=== PATIENT | female | born 1990 | race Caucasian/White ===

== ENCOUNTER 2017-06-10 00:51 | Inpatient (IN) | payer BC ==
[2017-06-10] MEDS ORDERED: Ampicillin 2 GM in Sodium Chloride 0.9% 100 ML IV ONE (02:49)
[2017-06-10] MEDS ORDERED: Water For Irrigation,Sterile 1,000 ML Container IRR PRN (02:49)
[2017-06-10] MEDS ORDERED: Butorphanol 1 MG/ML SDV IVPUSH PRN (02:49)
[2017-06-10] MEDS ORDERED: Lidocaine 1% 50 ML MDV INJECT PRN (02:49)
[2017-06-10] MEDS ORDERED: Sodium Chloride 0.9% 2.5 ML Syringe FLUSH PRN (02:49)
[2017-06-10] MEDS ORDERED: Misoprostol 200 MCG Tab PO PRN (02:49)
[2017-06-10] MEDS ORDERED: Tranexamic Acid 1,000 MG in Sodium Chloride 0.9% 100 ML IV PRN (02:49)
[2017-06-10] MEDS ORDERED: Carboprost Tromethamine 250 MCG/1 ML Amp IM PRN (02:49)
[2017-06-10] MEDS ORDERED: Methylergonovine 0.2 MG/1 ML Amp IM PRN (02:49)
[2017-06-10] MEDS ORDERED: Nalbuphine 10 MG/1 ML Vial IVPUSH PRN (02:49)
[2017-06-10] MEDS ORDERED: Sodium Chloride 0.9% 10 ML Syringe FLUSH PRN (02:49)
[2017-06-10] MEDS ORDERED: Oxytocin/0.9 % Sodium Chloride 30 UNIT/500 ML BAG IV SCH ×2 (03:00→19:30)
[2017-06-10] MEDS: Lactated Ringers 1,000 ML IV SCH ×2 (03:35→10:33)
[2017-06-10] MEDS: Ampicillin 1 GM in Sodium Chloride 0.9% 50 ML IV SCH ×5 (04:59→21:16)
[2017-06-10] MEDS ORDERED: Ropivacaine 0.2% 2 MG/ML 20 ML SDV ONE (11:11)
--- NOTE | 2017-06-10 11:13 | PCM.LDHP ---
L&D History of Present Illness - General Date of Service: 06/10/17 Admit Problem/Dx: Patient Status Order with Admit Dx/Problem 06/10/17 02:50 Patient Status [ADT] Routine Admission Diagnosis/Problem Admission Diagnosis/Problem Source of Information: Patient History Limitations: Reports: No Limitations - History of Present Illness Pain Score: 8 Improves with: Reports: None Worsens with: Reports: None Associated Symptoms: Reports: N - Related Data Allergies/Adverse Reactions: Allergies Allergy/AdvReac Type Severity Reaction Status Date / Time No Known Allergies Allergy Verified 06/10/17 02:49 Past Medical History - Past Surgical History Musculoskeletal Surgical History: Reports: Other (See Below) Other Musculoskeletal Surgeries/Procedures:: Arm reconstruction Social & Family History - Tobacco Use Smoking Status *Q: Never Smoker - Caffeine Use Caffeine Use: Reports: Coffee - Recreational Drug Use Recreational Drug Use: No H&P Review of Systems - Review of Systems: Review Of Systems: See Below General: Reports: No Symptoms HEENT: Reports: No Symptoms Pulmonary: Reports: No Symptoms Cardiovascular: Reports: No Symptoms Gastrointestinal: Reports: No Symptoms Genitourinary: Reports: No Symptoms Musculoskeletal: Reports: No Symptoms Skin: Reports: No Symptoms Psychiatric: Reports: No Symptoms Neurological: Reports: No Symptoms Hematologic/Lymphatic: Reports: No Symptoms Immunologic: Reports: No Symptoms L&D Exam - Exam Exam: See Below - Vital Signs Weight: 82.372 kg - OB Specific Fundal Height In cm: 36 Contraction Intensity: Moderate to Strong Movement: Active Heart Tones: Present Presentation: Vertex - Landeros Score Landeros Score Cervix Position: Anterior Landeros Score Consistency: Soft Landeros Score Effacement: >80% Landeros Score Dilation: > 5 cm Landeros Score 's Station: -2 Landeros Score Total: 11 - Exam General: Alert, Oriented HEENT: PERRLA, Conjunctiva Clear, EACs Clear, EOMI, Hearing Intact, Mucosa Moist & Agenda, Nares Patent, Normal Nasal Septum, Posterior Pharynx Clear, TMs Clear Neck: Supple, Trachea Midline Lungs: Clear to Auscultation, Normal Respiratory Effort Cardiovascular: Regular Rate, Regular Rhythm GI/Abdominal Exam: Normal Bowel Sounds, Soft, Non-Tender, No Organomegaly, No Distention, No Abnormal Bruit, No Mass, Pelvis Stable Rectal Exam: Normal Exam, Normal Rectal Tone Genitourinary: Normal external exam, Normal bimanual exam, Normal speculum exam Back Exam: Normal Inspection, Full Range of Motion Extremities: Normal Inspection, Normal Range of Motion, Non-Tender, No Pedal Edema, Normal Capillary Refill Skin: Warm, Dry, Intact Neurological: Cranial Nerves Intact, Reflexes Equal Bilateral Psychiatric: Alert, Normal Affect, Normal Mood - Patient Data Lab Results Last 24 hrs: Laboratory Results - last 24 hr 06/10/17 06/10/17 Range/Units 03:10 03:10 WBC 9.11 (4.0-11.0) K/uL RBC 4.40 (4.30-5.90) M/uL Hgb 12.6 (12.0-16.0) g/dL Hct 36.5 (36.0-46.0) % MCV 83.0 (80.0-98.0) fL MCH 28.6 (27.0-32.0) pg MCHC 34.5 (31.0-37.0) g/dL RDW Std Deviation 41.9 (28.0-62.0) fl RDW Coeff of Sonya 14 (11.0-15.0) % Plt Count 155 (150-400) K/uL MPV 10.70 (7.40-12.00) fL Nucleated RBC % 0.0 /100WBC Nucleated RBCs # 0 K/uL Blood Type A POSITIVE Antibody Screen NEGATIVE Result Diagrams: 06/10/17 03:10 Problem List Initiated/Reviewed/Updated: Yes Orders Last 24hrs: Active Orders 24 hr Category Date Time Status Patient Status [ADT] Routine ADT 06/10/17 02:50 Active Heart Tones [RC] CONTINUOUS Care 06/10/17 02:50 Active Non Stress Test [RC] PER UNIT ROUTINE Care 06/10/17 02:50 Active May Shower [RC] ASDIRECTED Care 06/10/17 02:50 Active Notify Provider [RC] PRN Care 06/10/17 02:50 Active Up ad Dena [RC] ASDIRECTED Care 06/10/17 02:50 Active Vaginal Exam [RC] PRN Care 06/10/17 02:50 Active Vital Signs [RC] PER UNIT ROUTINE Care 06/10/17 02:50 Active Ampicillin 1 gm Med 06/10/17 03:00 Active Sodium Chloride 0.9% [Normal Saline] 50 ml IV Q4H Butorphanol [Stadol] Med 06/10/17 02:49 Active 1 mg IVPUSH ASDIRECTED PRN Carboprost Tromethamine [Hemabate DS] Med 06/10/17 02:49 Active 250 mcg IM ASDIRECTED PRN Lactated Ringers [Ringers, Lactated] 1,000 ml Med 06/10/17 03:00 Active IV ASDIRECTED Lidocaine 1% [Xylocaine 1%] Med 06/10/17 02:49 Active 50 ml INJECT .ONCE PRN Methylergonovine [Methergine] Med 06/10/17 02:49 Active 0.2 mg IM ASDIRECTED PRN Misoprostol [Cytotec] Med 06/10/17 02:49 Active 200 mcg PO .ONCE PRN Nalbuphine [Nubain] Med 06/10/17 02:49 Active 10 mg IVPUSH ASDIRECTED PRN Oxytocin/0.9 % Sodium Chloride [Oxytocin 30 Unit/500 ML Med 06/10/17 03:00 Active -NS] 30 unit in 500 ml IV ASDIRECTED Sodium Chloride 0.9% [Saline Flush] Med 06/10/17 02:49 Active 10 ml FLUSH ASDIRECTED PRN Sodium Chloride 0.9% [Saline Flush] Med 06/10/17 02:49 Active 2.5 ml FLUSH ASDIRECTED PRN Tranexamic Acid [Cyklokapron] 1,000 mg Med 06/10/17 02:49 Active Sodium Chloride 0.9% [Normal Saline] 100 ml IV ONETIME Water For Irrigation,Sterile [Sterile Water for Med 06/10/17 02:49 Active Irrigation] 1,000 ml IRR ASDIRECTED PRN Scalp Electrode [WOMSER] Per Unit Routine Oth 06/10/17 02:50 Ordered Peripheral IV Insertion Adult [OM.PC] Routine Oth 06/10/17 02:50 Ordered Resuscitation Status Routine Resus Stat 06/10/17 02:49 Ordered Medication Orders Butorphanol Tartrate (Stadol) 1 mg IVPUSH ASDIRECTED PRN PRN Reason: Pain Carboprost Tromethamine (Hemabate Ds) 250 mcg IM ASDIRECTED PRN PRN Reason: Post Hemorrhage Ampicillin Sodium 1 gm/ Sodium (Chloride) 50 mls @ 100 mls/hr IV Q4H KATIE Last Admin: 06/10/17 08:44 Dose: 100 mls/hr Infusion: 06/10/17 05:29 Dose: 100 mls/hr Admin: 06/10/17 04:59 Dose: 100 mls/hr Lactated Ringer's (Ringers, Lactated) 1,000 mls @ 150 mls/hr IV ASDIRECTED [facility] Last Admin: 06/10/17 10:33 Dose: 150 mls/hr Infusion: 06/10/17 10:16 Dose: 150 mls/hr Admin: 06/10/17 03:35 Dose: 150 mls/hr Oxytocin/Sodium Chloride (Oxytocin 30 Unit/500 Ml-Ns) 30 unit in 500 mls @ 999 mls/hr IV ASDIRECTED [facility] Tranexamic Acid 1,000 mg/ (Sodium Chloride) 110 mls @ 600 mls/hr IV ONETIME PRN PRN Reason: Bleeding Lidocaine HCl (Xylocaine 1%) 50 ml INJECT .ONCE PRN PRN Reason: Laceration repair Methylergonovine Maleate (Methergine) 0.2 mg IM ASDIRECTED PRN PRN Reason: Post Hemorrhage Misoprostol (Cytotec) 200 mcg PO .ONCE PRN PRN Reason: Post Hemorrhage Nalbuphine HCl (Nubain) 10 mg IVPUSH ASDIRECTED PRN PRN Reason: Pain (severe 7-10) Last Admin: 06/10/17 04:59 Dose: 10 mg Sodium Chloride (Saline Flush) 10 ml FLUSH ASDIRECTED PRN PRN Reason: Keep Vein Open Sodium Chloride (Saline Flush) 2.5 ml FLUSH ASDIRECTED PRN PRN Reason: Keep Vein Open Sterile Water (Sterile Water For Irrigation) 1,000 ml IRR ASDIRECTED PRN PRN Reason: delivery Assessment/Plan Comment:: Pt in active labor P0000 term 39+. she can have Epidural if she want it.
--- NOTE | 2017-06-10 11:46 | PCM.PREANE ---
Preanesthetic Assessment - Procedure Proposed Procedure: labor epidural - Anesthesia/Transfusion/Family Hx Anesthesia History: Prior Anesthesia Without Reaction Family History of Anesthesia Reaction: No Transfusion History: No Prior Transfusion(s) - Review of Systems Other: Reports: None - Physical Assessment Height: 5 ft 9 in Weight: 82.372 kg ASA Class: 2 Mental Status: Alert & Oriented x3 Airway Class: Mallampati = 2 Dentition: Reports: Normal Dentition Thyro-Mental Finger Breadths: 3 Mouth Opening Finger Breadths: 3 ROM/Head Extension: Full - Lab Values: Laboratory Last Values WBC 9.11 K/uL (4.0-11.0) 06/10/17 03:10 RBC 4.40 M/uL (4.30-5.90) 06/10/17 03:10 Hgb 12.6 g/dL (12.0-16.0) 06/10/17 03:10 Hct 36.5 % (36.0-46.0) 06/10/17 03:10 MCV 83.0 fL (80.0-98.0) 06/10/17 03:10 MCH 28.6 pg (27.0-32.0) 06/10/17 03:10 MCHC 34.5 g/dL (31.0-37.0) 06/10/17 03:10 RDW Std Deviation 41.9 fl (28.0-62.0) 06/10/17 03:10 RDW Coeff of Sonya 14 % (11.0-15.0) 06/10/17 03:10 Plt Count 155 K/uL (150-400) 06/10/17 03:10 MPV 10.70 fL (7.40-12.00) 06/10/17 03:10 Nucleated RBC % 0.0 /100WBC 06/10/17 03:10 Nucleated RBCs # 0 K/uL 06/10/17 03:10 Blood Type A POSITIVE 06/10/17 03:10 Antibody Screen NEGATIVE 06/10/17 03:10 - Allergies Allergies/Adverse Reactions: Allergies Allergy/AdvReac Type Severity Reaction Status Date / Time No Known Allergies Allergy Verified 06/10/17 02:49 - Blood Blood Available: Yes Product(s) Available: PRBC - Acknowledgements Anesthesia Type Planned: Epidural Pt an Appropriate Candidate for the Planned Anesthesia: Yes Alternatives and Risks of Anesthesia Discussed w Pt/Guardian: Yes Pt/Guardian Understands and Agrees with Anesthesia Plan: Yes PreAnesthesia Questionnaire - Past Surgical History HEENT Surgical History: Reports: Oral Surgery Musculoskeletal Surgical History: Reports: Other (See Below) Other Musculoskeletal Surgeries/Procedures:: Arm reconstruction - SUBSTANCE USE Smoking Status *Q: Never Smoker Recreational Drug Use History: No - CURRENT (IN HOUSE) MEDS Current Meds: Current Medications Butorphanol Tartrate (Stadol) 1 mg IVPUSH ASDIRECTED PRN PRN Reason: Pain Carboprost Tromethamine (Hemabate Ds) 250 mcg IM ASDIRECTED PRN PRN Reason: Post Hemorrhage Ampicillin Sodium 1 gm/ Sodium (Chloride) 50 mls @ 100 mls/hr IV Q4H [facility] Last Admin: 06/10/17 08:44 Dose: 100 mls/hr Lactated Ringer's (Ringers, Lactated) 1,000 mls @ 150 mls/hr IV ASDIRECTED [facility] Last Admin: 06/10/17 10:33 Dose: 150 mls/hr Oxytocin/Sodium Chloride (Oxytocin 30 Unit/500 Ml-Ns) 30 unit in 500 mls @ 999 mls/hr IV ASDIRECTED [facility] Tranexamic Acid 1,000 mg/ (Sodium Chloride) 110 mls @ 600 mls/hr IV ONETIME PRN PRN Reason: Bleeding Lidocaine HCl (Xylocaine 1%) 50 ml INJECT .ONCE PRN PRN Reason: Laceration repair Methylergonovine Maleate (Methergine) 0.2 mg IM ASDIRECTED PRN PRN Reason: Post Hemorrhage Misoprostol (Cytotec) 200 mcg PO .ONCE PRN PRN Reason: Post Hemorrhage Nalbuphine HCl (Nubain) 10 mg IVPUSH ASDIRECTED PRN PRN Reason: Pain (severe 7-10) Last Admin: 06/10/17 04:59 Dose: 10 mg Sodium Chloride (Saline Flush) 10 ml FLUSH ASDIRECTED PRN PRN Reason: Keep Vein Open Sodium Chloride (Saline Flush) 2.5 ml FLUSH ASDIRECTED PRN PRN Reason: Keep Vein Open Sterile Water (Sterile Water For Irrigation) 1,000 ml IRR ASDIRECTED PRN PRN Reason: delivery Discontinued Medications Ampicillin Sodium 2 gm/ Sodium (Chloride) 100 mls @ 200 mls/hr IV ONETIME ONE Stop: 06/10/17 03:18 Last Admin: 06/10/17 03:35 Dose: 200 mls/hr Fentanyl/Bupivacaine HCl (Hiafubgx-Yazva-Uf 2 Mcg/Ml-0.125%) Confirm Administered Dose 100 mls @ as directed EP .STK-MED ONE Stop: 06/10/17 11:11 Ropivacaine (Naropin 0.2%) Confirm Administered Dose 20 ml .ROUTE .STK-MED ONE Stop: 06/10/17 11:12
[2017-06-10] MEDS ORDERED: Terbutaline 1 MG/ML SDV SUBCUT PRN (19:26)
[2017-06-11] MEDS ORDERED: Bisacodyl 10 MG Supp RECTAL PRN (05:23)
[2017-06-11] MEDS ORDERED: Acetaminophen 500 MG Tab PO PRN ×2 (05:23)
[2017-06-11] MEDS ORDERED: Benzocaine/Menthol 20%-0.5% Spray 78 GM Cannister TOP PRN (05:23)
[2017-06-11] MEDS ORDERED: Lanolin 100% Cream 7 GM Tube TOP PRN (05:23)
[2017-06-11] MEDS ORDERED: Witch Hazel Medicated Pads 40/Jar TOP PRN (05:23)
[2017-06-11] MEDS ORDERED: Ibuprofen 400 MG Tab PO PRN (05:23)
[2017-06-11] MEDS: Ibuprofen 800 MG Tab PO PRN ×3 (05:54→18:22)
[2017-06-11] MEDS: oxyCODONE 5 MG Tab PO PRN ×2 (05:55→08:55)
--- NOTE | 2017-06-11 05:56 | OR ---
SURGEON: Andrew Grey MD DATE OF PROCEDURE: 06/11/2017 Ms. Abraham is a 26-year-old patient. She is a primigravida. She is followed in our clinic primarily by the nurse glassblower. She had no problem prenatally. She had a positive GBS. The patient is admitted in active labor. She was about 4 cm at the time of admission with an intact membrane. The patient is started on antibiotic appropriately, and after 3 doses, the patient had an artificial rupture of the membrane at 8 cm. The patient initially did not want epidural. However, because of intense pain, she had epidural. At the time she had the epidural, she was 7 to 8 cm, complete, vertex, zero station. However, the unfortunate thing is that the patient did have a very dense epidural, and she required Pitocin augmentation, and she progressed slowly after that and she became complete-complete, and after that, she was able to push and she pushed for about 3-1/2 hours and then she was able to accomplish vaginal delivery of a male fetus. The episiotomy was required to do to prevent labial laceration and perineal laceration. At the time of the delivery, it was noticed that there was a thick meconium, so appropriate suctioning of the fetus is done, and the fetus was cried immediately. score reported to be 8 and 9. The weight is not available. The placenta delivered spontaneous, complete and intact, and the area of the episiotomy infiltrated with 1% Xylocaine and repaired with 3-0 Vicryl in layer. heart rate was category 1 through the entire process of labor, and there was no complication in the process of labor and delivery. The estimated blood loss was 250 to 300 mL. There was no complication. HEATHER / PITER /[id number]
[2017-06-11] MEDS: Docusate Sodium 100 MG Cap PO PRN ×2 (08:54→21:57)
--- NOTE | 2017-06-11 11:03 | PCM48HPAN ---
Post Anesthesia Note - EVALUATION WITHIN 48HRS OF ANESTHETIC Vital Signs in Normal Range: Yes Patient Participated in Evaluation: Yes Respiratory Function Stable: Yes Airway Patent: Yes Cardiovascular Function Stable: Yes Hydration Status Stable: Yes Pain Control Satisfactory: Yes Nausea and Vomiting Control Satisfactory: Yes Mental Status Recovered: Yes
[2017-06-12] MEDS: oxyCODONE 5 MG Tab PO PRN (06:36)
[2017-06-12] MEDS: Ibuprofen 800 MG Tab PO PRN ×2 (06:36→13:33)
[2017-06-12] MEDS ORDERED: ceFAZolin 1 GM Vial IM ONE (07:02)
[2017-06-12] MEDS ORDERED: ceFAZolin 1 GM in Premix Bag 1 BAG IV ONE (07:15)
[2017-06-12] MEDS: Docusate Sodium 100 MG Cap PO PRN (08:46)
--- NOTE | 2017-06-12 09:32 | PCM.DCSUM1 ---
Discharge Summary - Hospital Course Free Text/Narrative:: Discharge home with . Follow up in 6 weeks for post , comes sooner if needed. - Discharge Data Discharge Date: 06/12/17 Discharge Disposition: Home, Self-Care 01 Condition: Good - Patient Instructions Diet: Usual Diet as Tolerated Activity: As Tolerated, No Strenuous Activities, Rest and Relax Today Driving: May Drive Today Showering/Bathing: May Shower Wound/Incision Care: Keep Operative Site/Wound Site Clean and Dry Notify Provider of: Fever, Increased Pain, Swelling and Redness, Nausea and/or Vomiting Other/Special Instructions: Discharge home with . Follow up in 6 weeks for post , comes sooner if needed. - Discharge Plan - General Info Date of Service: 06/12/17 Admission Dx/Problem (Free Text: Patient Status Order with Admit Dx/Problem 06/10/17 02:50 Patient Status [ADT] Routine Admission Diagnosis/Problem Admission Diagnosis/Problem Functional Status: Reports: Pain Controlled, Tolerating Diet, Ambulating, Urinating - Review of Systems General: Reports: No Symptoms HEENT: Reports: No Symptoms Pulmonary: Reports: No Symptoms Cardiovascular: Reports: No Symptoms Gastrointestinal: Reports: No Symptoms Genitourinary: Reports: No Symptoms Musculoskeletal: Reports: No Symptoms Skin: Reports: No Symptoms Neurological: Reports: No Symptoms Psychiatric: Reports: No Symptoms - Patient Data Vitals - Most Recent: Last Vital Signs Temp 36.7 C 06/12/17 09:01 Pulse 72 06/12/17 09:01 Resp 18 06/12/17 09:01 BP 111/55 L 06/12/17 09:01 Pulse Ox 97 06/12/17 09:01 Weight - Most Recent: 82.372 kg Lab Results - Last 24 hrs: Laboratory Results - last 24 hr 06/12/17 Range/Units 05:15 Hgb 10.8 L (12.0-16.0) g/dL Hct 32.6 L (36.0-46.0) % Med Orders - Current: Current Medications Acetaminophen (Tylenol Extra Strength) 500 mg PO Q4H PRN PRN Reason: Pain Acetaminophen (Tylenol Extra Strength) 1,000 mg PO Q4H PRN PRN Reason: Pain Last Admin: 06/11/17 22:11 Dose: 1,000 mg Benzocaine/Menthol (Dermoplast Pain Relief 20%-0.5% [place]) 78 gm TOP ASDIRECTED PRN PRN Reason: Perineal Comfort Measure Last Admin: 06/11/17 05:53 Dose: 1 spray Bisacodyl (Dulcolax) 10 mg RECTAL .ONCE PRN PRN Reason: Constipation Butorphanol Tartrate (Stadol) 1 mg IVPUSH ASDIRECTED PRN PRN Reason: Pain Carboprost Tromethamine (Hemabate Ds) 250 mcg IM ASDIRECTED PRN PRN Reason: Post Hemorrhage Docusate Sodium (Colace) 100 mg PO BID PRN PRN Reason: Constipation Last Admin: 06/12/17 08:46 Dose: 100 mg Emollient Ointment (Lansinoh Hpa) 0 gm TOP ASDIRECTED PRN PRN Reason: Sore Nipples Last Admin: 06/11/17 05:53 Dose: 1 applic Ampicillin Sodium 1 gm/ Sodium (Chloride) 50 mls @ 100 mls/hr IV Q4H [facility]ATIE Last Admin: 06/10/17 21:16 Dose: 100 mls/hr Lactated Ringer's (Ringers, Lactated) 1,000 mls @ 150 mls/hr IV ASDIRECTED [facility]ATIE Last Admin: 06/10/17 10:33 Dose: 150 mls/hr Oxytocin/Sodium Chloride (Oxytocin 30 Unit/500 Ml-Ns) 30 unit in 500 mls @ 999 mls/hr IV ASDIRECTED [facility]ATIE Tranexamic Acid 1,000 mg/ (Sodium Chloride) 110 mls @ 600 mls/hr IV ONETIME PRN PRN Reason: Bleeding Oxytocin/Sodium Chloride (Oxytocin 30 Unit/500 Ml-Ns) 30 unit in 500 mls @ 2 mls/hr IV TITRATE KATIE; 2 MUNITS/MIN PRN Reason: Protocol Last Titration: 06/10/17 21:20 Dose: 8 munits/min, 8 mls/hr Ibuprofen (Motrin) 400 mg PO Q4H PRN PRN Reason: Pain Ibuprofen (Motrin) 800 mg PO Q6H PRN PRN Reason: Pain Last Admin: 06/12/17 06:36 Dose: 800 mg Lidocaine HCl (Xylocaine 1%) 50 ml INJECT .ONCE PRN PRN Reason: Laceration repair Last Admin: 06/11/17 05:53 Dose: 50 ml Methylergonovine Maleate (Methergine) 0.2 mg IM ASDIRECTED PRN PRN Reason: Post Hemorrhage Misoprostol (Cytotec) 200 mcg PO .ONCE PRN PRN Reason: Post Hemorrhage Nalbuphine HCl (Nubain) 10 mg IVPUSH ASDIRECTED PRN PRN Reason: Pain (severe 7-10) Last Admin: 06/10/17 04:59 Dose: 10 mg Oxycodone HCl (Oxycodone) 5 mg PO Q2H PRN PRN Reason: Pain Last Admin: 06/12/17 06:36 Dose: 5 mg Sodium Chloride (Saline Flush) 10 ml FLUSH ASDIRECTED PRN PRN Reason: Keep Vein Open Sodium Chloride (Saline Flush) 2.5 ml FLUSH ASDIRECTED PRN PRN Reason: Keep Vein Open Sterile Water (Sterile Water For Irrigation) 1,000 ml IRR ASDIRECTED PRN PRN Reason: delivery Last Admin: 06/11/17 05:53 Dose: 1,000 ml Terbutaline Sulfate (Brethine) 0.25 mg SUBCUT ASDIRECTED PRN PRN Reason: Tacysystole Witch Veronica (Tucks) 1 pad TOP ASDIRECTED PRN PRN Reason: comfort care Last Admin: 06/11/17 05:54 Dose: 1 pad Discontinued Medications Cefazolin Sodium (Ancef) 1 gm IM ONETIME ONE Stop: 06/12/17 07:03 Ampicillin Sodium 2 gm/ Sodium (Chloride) 100 mls @ 200 mls/hr IV ONETIME ONE Stop: 06/10/17 03:18 Last Admin: 06/10/17 03:35 Dose: 200 mls/hr Fentanyl/Bupivacaine HCl (Gygrizpm-Nsgqk-Dt 2 Mcg/Ml-0.125%) Confirm Administered Dose 100 mls @ as directed EP .STK-MED ONE Stop: 06/10/17 11:11 Fentanyl/Bupivacaine HCl (Dcqektan-Hwpvd-Tk 2 Mcg/Ml-0.125%) Confirm Administered Dose 100 mls @ as directed EP .STK-MED ONE Stop: 06/10/17 21:30 Cefazolin Sodium/Dextrose 1 gm (/ Premix) 50 mls @ 100 mls/hr IV ONETIME ONE Stop: 06/12/17 07:44 Ropivacaine (Naropin 0.2%) Confirm Administered Dose 20 ml .ROUTE .STK-MED ONE Stop: 06/10/17 11:12 - Exam General: Reports: Alert, Oriented, Cooperative, No Acute Distress Lungs: Reports: Normal Respiratory Effort GI/Abdominal Exam: Soft, Non-Tender, No Mass (Female) Exam: Vaginal Bleeding Rectal (Female) Exam: Deferred Back Exam: Reports: Full Range of Motion Extremities: Normal Range of Motion, Non-Tender, No Pedal Edema, Normal Capillary Refill Skin: Reports: Warm, Dry, Intact Wound/Incisions: Reports: Healing Well Neurological: Reports: No New Focal Deficit, Normal Gait, Normal Speech, Normal Tone Psy/Mental Status: Reports: Alert, Normal Affect, Normal Mood *Q Meaningful Use (DIS) - VTE *Q VTE Criteria *Q: - Stroke *Q Stroke Criteria *Q: - AMI *Q AMI Criteria *Q:
== END 2017-06-12 14:00 | disposition home or self-care (01) | DRG 560 ==
LOC: MW.OBCHECK 00:51 → MW.OB 00:54 → MW.OBCHECK 02:50 → OBSVTOIN 06-11 05:06 → MW.OB 06-11 12:40
PROVIDERS: ADMIT Obstetrics & Gynecology; ATTEND Obstetrics & Gynecology
PROC: 10E0XZZ Delivery of Products of Conception, External Approach (ICD-10-PCS; principal; 2017-06-11)
PROC: 10907ZC Drainage of Amniotic Fluid, Therapeutic from Products of Conception, Via Natural or Artificial Opening (ICD-10-PCS; 2017-06-11)
PROC: 0W8NXZZ Division of Female Perineum, External Approach (ICD-10-PCS; 2017-06-11)
DX: O99.824 Streptococcus B carrier state complicating childbirth (principal); Z3A.39 39 weeks gestation of pregnancy; Z37.0 Single live birth
CPT/HCPCS: 01967; 36415; 51702; 59025; 59409; 85014; 85018; 85027; 86850; 86900; 86901; A9270-GY; J0290; J2300; J2590; J7030; J7050; J7120

== ENCOUNTER 2019-08-14 19:26 | Inpatient (IN) | payer MEDICAID ==
[2019-08-14] MEDS ORDERED: Sodium Chloride 0.9% 10 ML SDV IV PRN (21:18)
[2019-08-14] MEDS ORDERED: Tranexamic Acid 1,000 MG in Sodium Chloride 0.9% 100 ML IV PRN (21:18)
[2019-08-14] MEDS ORDERED: Sodium Chloride 0.9% 2.5 ML Syringe FLUSH PRN (21:18)
[2019-08-14] MEDS ORDERED: Lidocaine 1% 50 ML MDV INJECT PRN (21:18)
[2019-08-14] MEDS ORDERED: Sodium Chloride 0.9% 10 ML Syringe FLUSH PRN (21:18)
[2019-08-14] MEDS ORDERED: Nalbuphine 10 MG/1 ML Vial IVPUSH PRN (21:18)
[2019-08-14] MEDS ORDERED: Misoprostol 200 MCG Tab PO PRN (21:18)
[2019-08-14] MEDS ORDERED: Butorphanol 1 MG/ML SDV IVPUSH PRN (21:18)
[2019-08-14] MEDS ORDERED: Ondansetron 4 MG/2 ML SDV IVPUSH PRN (21:18)
[2019-08-14] MEDS ORDERED: Methylergonovine 0.2 MG/1 ML Amp IM PRN (21:18)
[2019-08-14] MEDS ORDERED: Carboprost Tromethamine 250 MCG/1 ML Amp IM PRN (21:18)
[2019-08-14] MEDS ORDERED: Water For Irrigation,Sterile 1,000 ML Container IRR PRN (21:18)
[2019-08-14] MEDS ORDERED: Oxytocin/0.9 % Sodium Chloride 30 UNIT/500 ML BAG IV SCH (21:30)
[2019-08-14] MEDS: Lactated Ringers 1,000 ML IV SCH ×3 (21:40→23:07)
[2019-08-14] MEDS ORDERED: Bupivicaine/fentaNYL/NS 250 ML ONE (22:02)
--- NOTE | 2019-08-14 22:35 | PCM.PREANE ---
Preanesthetic Assessment - Anesthesia/Transfusion/Family Hx Anesthesia History: Prior Anesthesia Without Reaction Family History of Anesthesia Reaction: No Transfusion History: No Prior Transfusion(s) - Review of Systems General: No Symptoms Pulmonary: No Symptoms Cardiovascular: No Symptoms Gastrointestinal: No Symptoms Neurological: No Symptoms Other: Reports: None - Physical Assessment NPO Status Date: 08/14/19 NPO Status Time: 19:00 Height: 5 ft 9 in Weight: 83.915 kg ASA Class: 2 Mental Status: Alert & Oriented x3 Airway Class: Mallampati = 2 Dentition: Reports: Normal Dentition (permanent retainer ) Thyro-Mental Finger Breadths: 2 ROM/Head Extension: Full Lungs: Clear to Auscultation, Normal Respiratory Effort Cardiovascular: Regular Rate, Regular Rhythm - Lab Values: Laboratory Last Values WBC 9.06 K/uL (4.0-11.0) 08/14/19 21:40 RBC 4.42 M/uL (4.30-5.90) 08/14/19 21:40 Hgb 13.7 g/dL (12.0-16.0) 08/14/19 21:40 Hct 40.1 % (36.0-46.0) 08/14/19 21:40 MCV 90.7 fL (80.0-98.0) 08/14/19 21:40 MCH 31.0 pg (27.0-32.0) 08/14/19 21:40 MCHC 34.2 g/dL (31.0-37.0) 08/14/19 21:40 RDW Std Deviation 41.3 fl (28.0-62.0) 08/14/19 21:40 RDW Coeff of Sonya 12 % (11.0-15.0) 08/14/19 21:40 Plt Count 151 K/uL (150-400) 08/14/19 21:40 MPV 11.00 fL (7.40-12.00) 08/14/19 21:40 Nucleated RBC % 0.0 /100WBC 08/14/19 21:40 Nucleated RBCs # 0 K/uL 08/14/19 21:40 - Allergies Allergies/Adverse Reactions: Allergies Allergy/AdvReac Type Severity Reaction Status Date / Time No Known Allergies Allergy Verified 08/14/19 21:18 - Acknowledgements Anesthesia Type Planned: Epidural Pt an Appropriate Candidate for the Planned Anesthesia: Yes Alternatives and Risks of Anesthesia Discussed w Pt/Guardian: Yes Pt/Guardian Understands and Agrees with Anesthesia Plan: Yes PreAnesthesia Questionnaire - Past Surgical History HEENT Surgical History: Reports: Oral Surgery Musculoskeletal Surgical History: Reports: Other (See Below) Other Musculoskeletal Surgeries/Procedures:: Arm reconstruction - CURRENT (IN HOUSE) MEDS Current Meds: Current Medications Butorphanol Tartrate (Stadol) 1 mg IVPUSH Q1H PRN PRN Reason: Pain Last Admin: 08/14/19 22:00 Dose: 1 mg Carboprost Tromethamine (Hemabate Ds) 250 mcg IM ASDIRECTED PRN PRN Reason: Post Hemorrhage Lactated Ringer's (Ringers, Lactated) 1,000 mls @ 150 mls/hr IV ASDIRECTED KATIE Last Admin: 08/14/19 21:40 Dose: 150 mls/hr Oxytocin/Sodium Chloride (Oxytocin 30 Unit/500 Ml-Ns) 30 unit in 500 mls @ 500 mls/hr IV TITRATE KATIE Tranexamic Acid 1,000 mg/ (Sodium Chloride) 110 mls @ 660 mls/hr IV ONETIME PRN PRN Reason: Bleeding Lidocaine HCl (Xylocaine 1%) 50 ml INJECT ONETIME PRN PRN Reason: Laceration repair Methylergonovine Maleate (Methergine) 0.2 mg IM ASDIRECTED PRN PRN Reason: Post Hemorrhage Misoprostol (Cytotec) 200 mcg PO ONETIME PRN PRN Reason: Post Hemorrhage Nalbuphine HCl (Nubain) 10 mg IVPUSH Q1H PRN PRN Reason: Pain (severe 7-10) Ondansetron HCl (Zofran) 4 mg IVPUSH Q4H PRN PRN Reason: Nausea/Vomiting Sodium Chloride (Saline Flush) 10 ml FLUSH ASDIRECTED PRN PRN Reason: Keep Vein Open Sodium Chloride (Saline Flush) 2.5 ml FLUSH ASDIRECTED PRN PRN Reason: Keep Vein Open Sodium Chloride (Normal Saline) 10 ml IV ASDIRECTED PRN PRN Reason: IV Use Sterile Water (Sterile Water For Irrigation) 1,000 ml IRR ASDIRECTED PRN PRN Reason: delivery Discontinued Medications Fentanyl/Bupivacaine HCl (Fentanyl/Bupivacaine/Ns 2 Mcg-0.125% 250 Ml) Confirm Administered Dose 250 mls @ as directed .ROUTE .STK-MED ONE Stop: 08/14/19 22:03
[2019-08-15] MEDS ORDERED: Ibuprofen 400 MG Tab PO PRN (05:33)
[2019-08-15] MEDS ORDERED: Benzocaine/Menthol 20%-0.5% Spray 78 GM Cannister TOP PRN (05:33)
[2019-08-15] MEDS ORDERED: oxyCODONE 5 MG Tab PO PRN (05:33)
[2019-08-15] MEDS ORDERED: Lanolin 100% Cream 7 GM Tube TOP PRN (05:33)
[2019-08-15] MEDS ORDERED: Bisacodyl 10 MG Supp RECTAL PRN (05:33)
[2019-08-15] MEDS ORDERED: Aluminum Hydroxide/Magnesium Hydroxide/Simethicone Susp 30 ML Cup PO PRN (05:33)
[2019-08-15] MEDS ORDERED: Acetaminophen 500 MG Tab PO PRN (05:33)
[2019-08-15] MEDS ORDERED: Docusate Sodium 100 MG Cap PO PRN (05:33)
[2019-08-15] MEDS ORDERED: Witch Hazel Medicated Pads 40/Jar TOP PRN (05:33)
--- NOTE | 2019-08-15 05:40 | PCM.OPNOTE ---
- General Post-Op/Procedure Note Date of Surgery/Procedure: 08/15/19 Operative Procedure(s): /2nd MLL repaired Findings: Viable female APGARs 8, 9 weight pending. Spontaneous delivery intact placenta with 3V cord. Meconium stained amniotic fluid. Direct OP presentation Pre Op Diagnosis: 40/4 week IUP. Active labor Post-Op Diagnosis: Same Anesthesia Technique: Epidural Primary Surgeon: Nazia Petty EBL in mLs: 300 Complications: none known Condition: Good Free Text/Narrative:: Dictation [id number]
--- NOTE | 2019-08-15 07:16 | PCM.POSTAN ---
POST ANESTHESIA ASSESSMENT - MENTAL STATUS Mental Status: Alert, Oriented - RESPIRATORY Respiratory Status: Respiratory Rate WNL, Airway Patent, O2 Saturation Stable - CARDIOVASCULAR CV Status: Pulse Rate WNL, Blood Pressure Stable - GASTROINTESTINAL GI Status: No Symptoms - PAIN Pain Score: 3 - POST OP HYDRATION Hydration Status: Adequate & Stable - OBSERVATIONS Free Text/Narrative:: Epidural is wearing off and she is having more pressure.
[2019-08-15] MEDS: Ibuprofen 800 MG Tab PO PRN ×2 (10:11→21:53)
--- NOTE | 2019-08-15 13:50 | OR ---
SURGEON: Nazia Petty M.D. DATE OF PROCEDURE: 08/15/2019 PREOPERATIVE DIAGNOSES: 1. 40 and 4 weeks in . 2. Active labor. POSTOPERATIVE DIAGNOSES: 1. 40 and 4 weeks in . 2. Active labor. PROCEDURES: Spontaneous vaginal delivery, second-degree midline laceration repaired. ANESTHESIA: Epidural. ESTIMATED BLOOD LOSS: 300 mL. COMPLICATIONS: None known. FINDINGS: Viable female, scores 8 at one minute and 9 at five minutes. Weight is pending. Spontaneous delivery, intact placenta, 3-vessel cord. Meconium- stained amniotic fluid noted. Direct OP presentation. DISPOSITION: nursery, mom in LDRP. Leigh is a 29-year-old, G2, P1, at 40 and 4 weeks' gestation who presented on the evening of 08/14/2019 with regular contractions. On initial examination, she was found to be 4 cm, very uncomfortable contractions. Therefore, she was admitted. Routine labs drawn, IV hydration was initiated. She requested regional anesthesia, underwent this satisfactorily. heart tones were 130s to 140s with variability. The patient became more comfortable at that time, she was found to be 5 cm, 80% effaced, 0 station. She declined amniotomy, preferred to just progress spontaneously. Therefore, she was continued to allow to labor. She labored nicely through the dobby loom weaver hours and at approximately 3:30 a.m., was found to be complete. She had spontaneous rupture of membranes. There was an episode of prolonged deceleration directly as she just progressed to complete, therefore, this was resolved with positional changes and IV fluid hydration and oxygen supplementation. The patient began pushing efforts, pushed readily over the next hour and a half to a +3 station. The patient was placed in modified dorsal lithotomy position, was prepped and draped using aseptic manner, continued with pushing efforts, was able to deliver infant's head atraumatically, spontaneously. The was in direct OP position followed by delivery of anterior shoulder, posterior shoulder, remainder of body without difficulty. The 's oropharynx and nares were bulb-suctioned. Moderate meconium was noted. The was vigorous and handed off to his mother with attending nursing staff at the side. After a delay, cord was clamped x2 and cut. Cord arterial, cord venous, cord blood sampling were obtained. Light pressure was applied while the placenta was delivered spontaneously intact. Vigorous fundal uterine massage was then applied while 30 units of Pitocin was delivered in 500 mL IV fluid. Uterus was involuting nicely. Upon inspection of cervix, vaginal sidewalls, perineum, there was found to be a second-degree midline laceration, repaired using 3-0 Vicryl in the usual fashion. Uterus remained firm. Sponge count, instrument count, and needle count was correct. The patient remained in LDRP. to nursery. HARMAN / PITER /[id number]
[2019-08-15] MEDS: Acetaminophen 500 MG Tab PO PRN ×2 (15:26→23:53)
[2019-08-16] MEDS: Ibuprofen 800 MG Tab PO PRN (06:40)
--- NOTE | 2019-08-16 09:29 | PCM.PNPP ---
- General Info Date of Service: 08/16/19 Functional Status: Reports: Pain Controlled, Tolerating Diet, Ambulating, Urinating - Review of Systems General: Reports: No Symptoms HEENT: Reports: No Symptoms Pulmonary: Reports: No Symptoms Cardiovascular: Reports: No Symptoms Gastrointestinal: Reports: No Symptoms Genitourinary: Reports: No Symptoms Musculoskeletal: Reports: No Symptoms Skin: Reports: No Symptoms Neurological: Reports: No Symptoms Psychiatric: Reports: No Symptoms - General Info Date of Service: 08/16/19 - Patient Data Vital Signs - Most Recent: Last Vital Signs Temp 36.3 C 08/16/19 08:12 Pulse 69 08/16/19 08:12 Resp 18 08/16/19 08:12 BP 100/56 L 08/16/19 08:12 Pulse Ox 96 08/16/19 08:12 Weight - Most Recent: 83.915 kg Lab Results - Last 24 Hours: Laboratory Results - last 24 hr 08/16/19 Range/Units 06:30 Hgb 11.5 L (12.0-16.0) g/dL Hct 34.6 L (36.0-46.0) % Med Orders - Current: Current Medications Acetaminophen (Tylenol Extra Strength) 500 mg PO Q4H PRN PRN Reason: Pain Acetaminophen (Tylenol Extra Strength) 1,000 mg PO Q4H PRN PRN Reason: Pain Last Admin: 08/15/19 23:53 Dose: 1,000 mg Al Hydroxide/Mg Hydroxide (Mag-Al Plus) 30 ml PO Q8H PRN PRN Reason: Heartburn Benzocaine/Menthol (Dermoplast Pain Relief 20%-0.5% [place]) 78 gm TOP ASDIRECTED PRN PRN Reason: Perineal Comfort Measure Bisacodyl (Dulcolax) 10 mg RECTAL ONETIME PRN PRN Reason: Constipation Carboprost Tromethamine (Hemabate Ds) 250 mcg IM ASDIRECTED PRN PRN Reason: Post Hemorrhage Docusate Sodium (Colace) 100 mg PO BID PRN PRN Reason: Constipation Emollient Ointment (Lansinoh Hpa) 0 gm TOP ASDIRECTED PRN PRN Reason: Sore Nipples Last Admin: 08/15/19 15:27 Dose: 1 applic Lactated Ringer's (Ringers, Lactated) 1,000 mls @ 150 mls/hr IV ASDIRECTED [facility] Last Admin: 08/14/19 23:07 Dose: 150 mls/hr Oxytocin/Sodium Chloride (Oxytocin 30 Unit/500 Ml-Ns) 30 unit in 500 mls @ 500 mls/hr IV TITRATE [facility] Last Admin: 08/15/19 05:13 Dose: 500 mls/hr Tranexamic Acid 1,000 mg/ (Sodium Chloride) 110 mls @ 660 mls/hr IV ONETIME PRN PRN Reason: Bleeding Ibuprofen (Motrin) 400 mg PO Q4H PRN PRN Reason: Pain Ibuprofen (Motrin) 800 mg PO Q6H PRN PRN Reason: Pain Last Admin: 08/16/19 06:40 Dose: 800 mg Lidocaine HCl (Xylocaine 1%) 50 ml INJECT ONETIME PRN PRN Reason: Laceration repair Methylergonovine Maleate (Methergine) 0.2 mg IM ASDIRECTED PRN PRN Reason: Post Hemorrhage Misoprostol (Cytotec) 200 mcg PO ONETIME PRN PRN Reason: Post Hemorrhage Nalbuphine HCl (Nubain) 10 mg IVPUSH Q1H PRN PRN Reason: Pain (severe 7-10) Ondansetron HCl (Zofran) 4 mg IVPUSH Q4H PRN PRN Reason: Nausea/Vomiting Oxycodone HCl (Oxycodone) 5 mg PO Q2H PRN PRN Reason: Pain Sodium Chloride (Saline Flush) 10 ml FLUSH ASDIRECTED PRN PRN Reason: Keep Vein Open Sodium Chloride (Saline Flush) 2.5 ml FLUSH ASDIRECTED PRN PRN Reason: Keep Vein Open Sodium Chloride (Normal Saline) 10 ml IV ASDIRECTED PRN PRN Reason: IV Use Sterile Water (Sterile Water For Irrigation) 1,000 ml IRR ASDIRECTED PRN PRN Reason: delivery Last Admin: 08/15/19 05:13 Dose: 1,000 ml Witch Veronica (Tucks) 1 pad TOP ASDIRECTED PRN PRN Reason: comfort care Discontinued Medications Butorphanol Tartrate (Stadol) 1 mg IVPUSH Q1H PRN PRN Reason: Pain Last Admin: 08/14/19 22:00 Dose: 1 mg Fentanyl/Bupivacaine HCl (Fentanyl/Bupivacaine/Ns 2 Mcg-0.125% 250 Ml) Confirm Administered Dose 250 mls @ as directed .ROUTE .STK-MED ONE Stop: 08/14/19 22:03 - Interaction Support Person: Significant Other - Recovery Exam Fundal Tone: Firm Fundal Level: 1 Fingerbreadths Below Umbilicus Lochia Amount: Scant Lochia Color: Rubra/Red Bladder Status: Voiding - Exam General: Alert HEENT: Pupils Equal Neck: Supple Lungs: Clear to Auscultation, Normal Respiratory Effort Cardiovascular: Regular Rate, Regular Rhythm GI/Abdominal Exam: Normal Bowel Sounds Extremities: Normal Inspection Neurological: No New Focal Deficit - Problem List & Annotations (1) (normal spontaneous vaginal delivery) SNOMED Code(s): 45742422, 039035306 Code(s): O80 - ENCOUNTER FOR FULL-TERM UNCOMPLICATED DELIVERY Status: Acute Priority: High Current Visit: No - Problem List Review Problem List Initiated/Reviewed/Updated: Yes - Assessment Assessment:: 29yo P2 s/p PPD1 , stable , normal lochia - Plan Plan:: Discharge home
[2019-08-16] MEDS: Acetaminophen 500 MG Tab PO PRN (10:19)
== END 2019-08-16 13:28 | disposition home or self-care (01) | DRG 807 ==
LOC: MW.OBCHECK 19:26 → MW.OB 19:27 → MW.OBCHECK 21:18 → OBSVTOIN 08-15 05:01 → MW.OB 08-15 08:08
PROVIDERS: ADMIT Obstetrics & Gynecology; ATTEND Obstetrics & Gynecology
PROC: 10E0XZZ Delivery of Products of Conception, External Approach (ICD-10-PCS; principal; 2019-08-15)
PROC: 0KQM0ZZ Repair Perineum Muscle, Open Approach (ICD-10-PCS; 2019-08-15)
PROC: 3E0R3BZ Introduction of Anesthetic Agent into Spinal Canal, Percutaneous Approach (ICD-10-PCS; 2019-08-15)
DX: O77.0 Labor and delivery complicated by meconium in amniotic fluid (principal); Z37.0 Single live birth; O70.1 Second degree perineal laceration during delivery; Z3A.40 40 weeks gestation of pregnancy
CPT/HCPCS: 01967; 36415; 51702; 59025; 59409; 82803; 85014; 85018; 85027; 86592; 86593; 86850; 86900; 86901; A9270-GY; J0595; J2590; J7120

== ENCOUNTER 2021-10-19 17:41 | Emergency (ER) | payer SELFPAY ==
[2021-10-19] MEDS ORDERED: Sodium Chloride 0.9% 1,000 ML IV ONE (18:05)
[2021-10-19 18:54] LABS: CARBON DIOXIDE,CO2 27.4 mmol/L (21.0-32.0); POTASSIUM,K 4.4 mmol/L (3.5-5.1)
== END 2021-10-19 20:29 | disposition home or self-care (01) ==
LOC: MW.ED 17:41
DX: O20.0 Threatened abortion (principal); Z3A.12 12 weeks gestation of pregnancy
CPT/HCPCS: 36415; 76817; 76817-26; 80053; 81001; 84702; 85025; 86900; 86901; 99284; 99285

== ENCOUNTER 2021-10-20 09:59 | Emergency (ER) | payer SELFPAY ==
[2021-10-20] MEDS ORDERED: Sodium Chloride 0.9% 10 ML Syringe FLUSH PRN (10:03)
[2021-10-20] MEDS ORDERED: Sodium Chloride 0.9% 2.5 ML Syringe FLUSH PRN (10:03)
[2021-10-20 11:49] LABS: CARBON DIOXIDE,CO2 24.9 mmol/L (21.0-32.0); POTASSIUM,K 4.1 mmol/L (3.5-5.1)
== END 2021-10-20 12:23 | disposition home or self-care (01) ==
LOC: MW.ED 09:59
DX: O03.9 Complete or unspecified spontaneous abortion without complication (principal); O36.4XX1 Maternal care for intrauterine death, fetus 1
CPT/HCPCS: 36415; 80053; 84702; 85025; 99284; J3490